=== PATIENT | female | born 1960 | race Caucasian/White ===

== ENCOUNTER 2021-12-30 04:16 | Day surgery (SDC) | payer BC ==
[2021-12-25 19:09] VITALS: BMI 33.3
[2021-12-30] MEDS ORDERED: oxyCODONE HCL 5 MG TABLET PO PRN (08:20)
[2021-12-30] MEDS ORDERED: ONDANSETRON 4 MG/2 ML VIAL IVPUSH PRN (08:20)
[2021-12-30] MEDS ORDERED: PROMETHAZINE HCL 25 MG/1 ML VIAL IVPB PRN (08:20)
[2021-12-30] MEDS ORDERED: LACTATED RINGERS SOLUTION 1,000 ML IV SCH (08:30)
[2021-12-30] MEDS ORDERED: ISOSULFAN BLUE 50 MG/5 ML VIAL SQ ONE (10:00)
[2021-12-30] MEDS ORDERED: LIDOCAINE HCL 1%, 10 MG/ML (20ML VIAL) ONE (10:00)
[2021-12-30] MEDS ORDERED: LIDOCAINE HCL 1%, 10 MG/ML (20ML VIAL) NR ONE (10:46)
[2021-12-30] MEDS ORDERED: PROPOFOL 20 ML ONE (11:02)
[2021-12-30] MEDS ORDERED: MIDAZOLAM HCL 2 MG/2 ML SINGLE DOSE VIAL ONE (11:03)
[2021-12-30] MEDS ORDERED: GLYCOPYRROLATE 0.2 MG/1 ML VIAL ONE (11:03)
[2021-12-30] MEDS ORDERED: LIDOCAINE HCL/PF 2% SDV 5ML VIAL ONE (11:09)
[2021-12-30] MEDS ORDERED: ceFAZolin SODIUM 1 GM VIAL ONE (11:14)
[2021-12-30] MEDS ORDERED: SODIUM CHLORIDE 0.9% P/F 10 ML VIAL IJ ONE (11:14)
[2021-12-30] MEDS ORDERED: ceFAZolin SODIUM 1 GM VIAL IVPB ONE (11:16)
[2021-12-30] MEDS ORDERED: DEXAMETHASONE SOD PHOSPHATE 4 MG/1 ML VIAL ONE (11:17)
[2021-12-30] MEDS ORDERED: ACETAMINOPHEN INJECTION 100 ML IVPB ONE (12:05)
[2021-12-30 14:08] VITALS: TEMP 97.6
[2021-12-30 14:59] VITALS: BP 117/66; PULSE 78
== END 2021-12-30 15:23 | disposition home or self-care (01) ==
LOC: JASU-SURG 04:16
PROVIDERS: ATTEND Surgery
PROC: C71L1ZZ Planar Nuclear Medicine Imaging of Upper Chest Lymphatics using Technetium 99m (Tc-99m) (ICD-10-PCS; 2021-12-30)
PROC: 0HBT0ZZ Excision of Right Breast, Open Approach (ICD-10-PCS; principal; 2021-12-30 10:00)
PROC: 07B50ZX Excision of Right Axillary Lymphatic, Open Approach, Diagnostic (ICD-10-PCS; 2021-12-30 10:00)
DX: C50.911 Malignant neoplasm of unspecified site of right female breast (principal)
CPT/HCPCS: 78195-TC; 88307-TC; 88342-TC; 94760; A9541

== ENCOUNTER 2022-03-10 04:05 | Day surgery (SDC) | payer BC ==
[2022-03-05 18:02] VITALS: BMI 29.2
[2022-03-10] MEDS ORDERED: DEXAMETHASONE SOD PHOSPHATE 4 MG/1 ML VIAL ONE ×2 (11:22→13:00)
[2022-03-10] MEDS ORDERED: LIDOCAINE HCL 2% 100 MG/5 ML DISP.SYRIN ONE (11:22)
[2022-03-10] MEDS ORDERED: KETOROLAC TROMETHAMINE 30 MG/1 ML VIAL ONE (11:22)
[2022-03-10] MEDS ORDERED: ONDANSETRON 4 MG/2 ML VIAL ONE (11:22)
[2022-03-10] MEDS ORDERED: PROPOFOL 20 ML ONE (11:23)
[2022-03-10] MEDS ORDERED: MIDAZOLAM HCL 2 MG/2 ML SINGLE DOSE VIAL ONE (11:24)
[2022-03-10] MEDS ORDERED: SUCCINYLCHOLINE CHLORIDE 200 MG/10 ML SYRINGE ONE (11:24)
[2022-03-10] MEDS ORDERED: ROCURONIUM BROMIDE 50 MG/5 ML SYRINGE ONE (11:24)
[2022-03-10] MEDS ORDERED: ceFAZolin SODIUM 1 GM VIAL ONE ×2 (12:58→18:20)
[2022-03-10] MEDS ORDERED: ceFAZolin SODIUM 1 GM VIAL IVPB ONE (13:00)
[2022-03-10] MEDS ORDERED: HYDROmorphone HCl 2 MG/ML VIAL IVPB PRN (14:14)
[2022-03-10] MEDS ORDERED: ONDANSETRON 4 MG/2 ML VIAL IVPUSH PRN ×4 (15:57→17:23)
[2022-03-10] MEDS ORDERED: ACETAMINOPHEN 325 MG TABLET (FP) PO PRN ×2 (15:57→17:23)
[2022-03-10] MEDS ORDERED: oxyCODONE HCL 5 MG TABLET PO PRN ×3 (15:57→17:23)
[2022-03-10] MEDS ORDERED: PROMETHAZINE HCL 25 MG/1 ML VIAL IVPUSH PRN ×2 (15:58→17:23)
[2022-03-10] MEDS ORDERED: HYDROmorphone HCL CARPU-JECT 2 MG/1 ML DISP.SYRIN IVPUSH PRN (15:58)
[2022-03-10] MEDS ORDERED: ACETAMINOPHEN 1000 MG/100 ML BAG IVPB ONE (15:59)
[2022-03-10] MEDS ORDERED: ACETAMINOPHEN 325 MG TABLET (FP) PO SCH ×2 (16:00→16:15)
[2022-03-10] MEDS ORDERED: LACTATED RINGERS SOLUTION 1,000 ML IV SCH ×2 (16:00→16:45)
[2022-03-10] MEDS ORDERED: ACETAMINOPHEN INJECTION 100 ML IVPB ONE (16:04)
[2022-03-10] MEDS: HYDROmorphone HCL CARPU-JECT 2 MG/1 ML DISP.SYRIN IVPUSH PRN ×4 (16:15→16:51)
[2022-03-10] MEDS ORDERED: HYDROmorphone HCl 2 MG/ML VIAL ONE (16:24)
[2022-03-10] MEDS ORDERED: HYDROmorphone HCl 2 MG/ML VIAL IVPUSH PRN (17:23)
[2022-03-10] MEDS ORDERED: DEXTROSE 5%-WATER - 50 ML IVPB ONE (18:20)
[2022-03-10] MEDS: CEFAZOLIN 1 GM in DEXTROSE 5%-WATER - 50 ML IVPB SCH (18:26)
[2022-03-10] MEDS ORDERED: EZETIMIBE 10 MG TABLET (FP) PO SCH (22:00)
[2022-03-10] MEDS ORDERED: HYDROCHLOROTHIAZIDE 12.5 MG CAPSULE (FP) PO SCH (22:00)
[2022-03-10] MEDS ORDERED: ATORVASTATIN CA 10 MG TABLET (FP) PO SCH (22:00)
[2022-03-10] MEDS ORDERED: CANDESARTAN PO SCH (22:00)
[2022-03-10] MEDS ORDERED: PATIENT'S OWN MEDICATION (NON-FORMULARY) (Ezetimibe/Simvastatin [Ezetimibe-Simvastatin 10- PO SCH (22:00)
[2022-03-10] MEDS ORDERED: PATIENT'S OWN MEDICATION (NON-FORMULARY) (Mometasone/Formoterol [Dulera 100 Mcg-5 Mcg Inha IH SCH (22:00)
[2022-03-10] MEDS ORDERED: HYDROCHLOROTHIAZIDE PO SCH (22:00)
[2022-03-10] MEDS ORDERED: VALSARTAN 160 MG TABLET PO SCH (22:00)
[2022-03-10] MEDS: BUDESONIDE/FORMETEROL FUMARATE 80/4.5 mcg INHALER IH SCH (22:08)
[2022-03-11] MEDS ORDERED: ceFAZolin SODIUM 1 GM VIAL ONE ×2 (02:20→09:09)
[2022-03-11] MEDS ORDERED: DEXTROSE 5%-WATER - 50 ML IVPB ONE ×2 (02:20→09:09)
[2022-03-11] MEDS: CEFAZOLIN 1 GM in DEXTROSE 5%-WATER - 50 ML IVPB SCH ×2 (02:23→09:10)
[2022-03-11] MEDS: BUDESONIDE/FORMETEROL FUMARATE 80/4.5 mcg INHALER IH SCH (09:11)
[2022-03-11] MEDS ORDERED: CYANOCOBALAMIN 1,000 MCG TABLET (FP) PO SCH (10:00)
[2022-03-11] MEDS ORDERED: CALCIUM (OYSTER SHELL) 500 MG TABLET (FP) PO SCH ×2 (10:00)
[2022-03-11] MEDS ORDERED: PATIENT'S OWN MEDICATION (NON-FORMULARY) (Cyanocobalamin (Vitamin B-12) [Vitamin B12] 2,50 PO SCH (10:00)
[2022-03-11] MEDS ORDERED: CHOLECALCIFEROL (VIT D3) 400 UNIT (10 MCG) TABLET PO SCH ×2 (10:00)
[2022-03-11] MEDS: oxyCODONE HCL 5 MG TABLET PO PRN ×2 (11:59→12:03)
[2022-03-11 14:56] VITALS: BP 147/68; PULSE 84; TEMP 98.9
== END 2022-03-11 17:21 | disposition home health service (06) ==
LOC: JASUSAT 04:05 → EDSTATUS 11:00 → J8W 17:47 → JASUSAT 03-11 17:21
PROVIDERS: ATTEND Plastic Surgery
PROC: 0HTV0ZZ Resection of Bilateral Breast, Open Approach (ICD-10-PCS; principal; 2022-03-10 11:00)
PROC: 0HRV0JZ Replacement of Bilateral Breast with Synthetic Substitute, Open Approach (ICD-10-PCS; 2022-03-10 11:00)
DX: C50.912 Malignant neoplasm of unspecified site of left female breast (principal); C50.911 Malignant neoplasm of unspecified site of right female breast
CPT/HCPCS: 88307-TC; 88309-TC; 94760

== ENCOUNTER 2025-06-08 06:47 | Day surgery (SDC) | payer OTHER ==
[2025-06-05 17:50] VITALS: BMI 26.2
[2025-06-08] MEDS ORDERED: LIDOCAINE 1%/EPI 1:100000 (20 ML MULTI DOSE VIAL) ONE (09:32)
[2025-06-08] MEDS ORDERED: BUPIVACAINE HCL/PF 0.25% (2.5MG/ML) 10 ML VIAL ONE (09:32)
[2025-06-08] MEDS ORDERED: MIDAZOLAM HCL 2 MG/2 ML SINGLE DOSE VIAL ONE (09:46)
[2025-06-08] MEDS ORDERED: PHENYLEPHRINE HCL 10 MG/1 ML SINGLE DOSE VIAL ONE (11:53)
[2025-06-08] MEDS ORDERED: KETOROLAC TROMETHAMINE 30 MG/1 ML VIAL ONE (11:53)
[2025-06-08] MEDS ORDERED: DEXAMETHASONE SOD PHOSPHATE 4 MG/1 ML VIAL ONE (11:53)
[2025-06-08] MEDS ORDERED: ONDANSETRON 4 MG/2 ML VIAL ONE (11:53)
[2025-06-08] MEDS ORDERED: ONDANSETRON 4 MG/2 ML VIAL IVPUSH PRN (12:05)
[2025-06-08] MEDS: ACETAMINOPHEN 1000 MG/100 ML BAG IVPB ONE (12:10)
[2025-06-08] MEDS ORDERED: LACTATED RINGERS SOLUTION 1,000 ML IV SCH (12:15)
[2025-06-08] MEDS: KETOROLAC TROMETHAMINE 30 MG/1 ML VIAL IVPUSH ONE (12:15)
[2025-06-08 13:12] VITALS: PULSE 72; RESP 16
[2025-06-08 13:19] VITALS: TEMP 97.5
[2025-06-08 15:29] VITALS: BP 94/61
== END 2025-06-08 14:50 | disposition home or self-care (01) ==
LOC: FASU 06:47
PROVIDERS: ATTEND Plastic Surgery
PROC: 0HQW0ZZ Repair Right Nipple, Open Approach (ICD-10-PCS; 2025-06-08)
PROC: 0HQX0ZZ Repair Left Nipple, Open Approach (ICD-10-PCS; principal; 2025-06-08 10:34)
DX: Z85.3 Personal history of malignant neoplasm of breast (principal); Z90.13 Acquired absence of bilateral breasts and nipples
CPT/HCPCS: 94760